=== PATIENT | female | born 1955 | race Caucasian/White ===

== ENCOUNTER 2019-03-03 08:30 | Outpatient (CLI) | payer BC, SELFPAY ==
[2019-03-03 08:58] VITALS: BP 153/74; PULSE 65; RESP 18; TEMP 36.6; O2SAT 99
== END 2019-03-03 09:26 | disposition home or self-care (01) ==
LOC: INF 08:35
PROVIDERS: PCP Family Medicine; Visit Provider Family Medicine
DX: M81.0 Age-related osteoporosis without current pathological fracture (principal)
CPT/HCPCS: 96372; J0897

== ENCOUNTER 2019-09-01 08:32 | Outpatient (CLI) | payer BC, SELFPAY ==
[2019-09-01 08:45] VITALS: BP 125/65; PULSE 64; RESP 18; TEMP 36.6; O2SAT 99
== END 2019-09-01 08:45 | disposition home or self-care (01) ==
LOC: INF 08:32
PROVIDERS: Visit Provider Family Medicine
DX: M81.0 Age-related osteoporosis without current pathological fracture (principal)
CPT/HCPCS: 96372; J0897

== ENCOUNTER 2020-03-22 09:21 | Outpatient (CLI) | payer BC, SELFPAY ==
[2020-03-22 09:50] VITALS: BP 144/70; PULSE 64; RESP 18; TEMP 36.7; O2SAT 100
== END 2020-03-22 09:50 | disposition home or self-care (01) ==
LOC: INF 09:24
PROVIDERS: PCP Family Medicine; Visit Provider Family Medicine
DX: M81.0 Age-related osteoporosis without current pathological fracture (principal)
CPT/HCPCS: 96372; J0897

== ENCOUNTER 2020-09-27 08:55 | Outpatient (CLI) | payer BC, SELFPAY ==
[2020-09-27 09:15] VITALS: BP 147/69; PULSE 78; RESP 18; TEMP 36.7; O2SAT 97
== END 2020-09-27 09:30 | disposition home or self-care (01) ==
LOC: INF 08:55
PROVIDERS: Visit Provider Family Medicine
DX: M81.0 Age-related osteoporosis without current pathological fracture (principal)
CPT/HCPCS: 96372; J0897

== ENCOUNTER 2021-05-05 09:44 | Outpatient (CLI) | payer MEDICARE, OTHER, SELFPAY ==
[2021-05-05 10:10] VITALS: BP 147/61; PULSE 59; RESP 18; O2SAT 99
== END 2021-05-05 10:10 | disposition home or self-care (01) ==
LOC: INF 09:48
PROVIDERS: PCP Emergency Medicine; Visit Provider Emergency Medicine
DX: M81.0 Age-related osteoporosis without current pathological fracture (principal)
CPT/HCPCS: 96372; J0897

== ENCOUNTER → 2021-11-07 09:01 | Outpatient (CLI) | payer MEDICARE, OTHER, SELFPAY ==
[2021-11-07 09:12] VITALS: O2SAT 98
== END ==
PROVIDERS: PCP Internal Medicine Adolescent Medicine; Visit Provider Emergency Medicine
DX: M81.0 Age-related osteoporosis without current pathological fracture (principal)
CPT/HCPCS: 96372; J0897

== ENCOUNTER 2022-05-08 08:33 | Outpatient (CLI) | payer MEDICARE, OTHER, SELFPAY ==
[2022-05-08 08:54] VITALS: BP 128/64; PULSE 69; RESP 18; TEMP 36.4; O2SAT 98
== END 2022-05-08 08:54 | disposition home or self-care (01) ==
LOC: INF 08:35
PROVIDERS: PCP Internal Medicine Adolescent Medicine; Visit Provider Internal Medicine Adolescent Medicine
DX: M81.0 Age-related osteoporosis without current pathological fracture (principal)
CPT/HCPCS: 96372; J0897

== ENCOUNTER 2022-11-14 08:28 | Outpatient (CLI) | payer MEDICARE, OTHER, SELFPAY ==
[2022-11-14 08:47] VITALS: BP 131/64; PULSE 67; RESP 18; O2SAT 99
== END 2022-11-14 08:47 | disposition home or self-care (01) ==
LOC: INF 08:29
PROVIDERS: PCP Internal Medicine Adolescent Medicine; Visit Provider Internal Medicine Adolescent Medicine
DX: M81.0 Age-related osteoporosis without current pathological fracture (principal)
CPT/HCPCS: 96372; J0897

== ENCOUNTER 2023-05-22 08:24 | Outpatient (CLI) | payer MEDICARE, OTHER, SELFPAY ==
[2023-05-22 08:41] VITALS: BP 140/57; PULSE 59; RESP 16; TEMP 36.5; O2SAT 99
[2023-05-22] MEDS: DENOSUMAB 60 MG/ML SYRINGE SQ (08:41)
== END 2023-05-22 08:55 | disposition home or self-care (01) ==
LOC: INF 08:26
PROVIDERS: PCP Internal Medicine Adolescent Medicine; Visit Provider Internal Medicine Adolescent Medicine
DX: M81.0 Age-related osteoporosis without current pathological fracture (principal)
CPT/HCPCS: 96372; J0897

== ENCOUNTER 2023-11-22 08:15 | Outpatient (CLI) | payer MEDICARE, OTHER, SELFPAY ==
[2023-11-22 08:29] VITALS: BP 118/63; PULSE 55; RESP 18; TEMP 36.6; O2SAT 99
[2023-11-22] MEDS: DENOSUMAB 60 MG/ML SYRINGE SQ (08:29)
== END 2023-11-22 08:49 | disposition home or self-care (01) ==
LOC: INF 08:17
PROVIDERS: PCP Internal Medicine Adolescent Medicine; Visit Provider Internal Medicine Adolescent Medicine
DX: M81.0 Age-related osteoporosis without current pathological fracture (principal)
CPT/HCPCS: 96372; J0897

== ENCOUNTER 2024-05-23 08:13 | Outpatient (CLI) | payer MEDICARE, OTHER, SELFPAY ==
[2024-05-23 08:25] VITALS: BP 150/75; PULSE 60; RESP 20; TEMP 36.7; O2SAT 99
[2024-05-23] MEDS: DENOSUMAB 60 MG/ML SYRINGE SUBCUT (08:25)
== END 2024-05-23 08:47 | disposition home or self-care (01) ==
LOC: INF 08:18
PROVIDERS: PCP Internal Medicine Adolescent Medicine; Visit Provider Internal Medicine Adolescent Medicine
DX: M81.0 Age-related osteoporosis without current pathological fracture (principal)
CPT/HCPCS: 96372; J0897

== ENCOUNTER 2024-12-02 10:30 | Outpatient (CLI) | payer MEDICARE, OTHER, SELFPAY ==
--- OUTSIDE RECORDS SUMMARY | 2024-11-10 15:15 | XMS_ITS | Encounter Summary ---
Author Organization [facility] Address [address] [place] [address] Care Team Providers Care Synoptic Meteorologist Name Role Phone Shantanu Shin MD Primary Care Provider [phone] Reason for Visit * Reason Comments Atrial Fibrillation Pt states she is her e today for follow up atrial fib. No chest pain, SOA, palpitations or dizziness. She states she does have some flutters. Encounter Details Date Type Department Care Team (Late st Contact Info) Description 11/10/2024 3:15 PM EDT Office Visit [facility] CARDIOLOGY [address] [place] [address] Tammy Avila MD [address] [place] [address] RBBB (Primary Dx); Hypertension, essential; Paroxysmal atrial fibrillation Social History Tobacco Use Types Packs/Day Years Used Date Smoking Tobacco: Former Passive Smoke Exposure: Past Smokeless Tobacco: Never Tobacco Cessation:Counseling Given: Yes Comments:QUIT MORE THAN 20 YEARS AGO Alcohol Use Standard Drinks/Week Comments Yes 2 (1 standard drink = 0.6 oz pur e alcohol) Abuse Screen Answer Date Recorded Feels Unsafe at Home or Work/School no 05/16/2022 Feels Threatened by Someone no 04/20 Does Anyone Try to Keep You From Having Contact with Others or Doing Things Outside Your Home? no 05/16/2022 Physical Signs of Abuse Present no 05/16/2022 Comments No Sex and Gender Information Value Date Recorded Sex Assigned at Female 06/30/2024 10:18 PM EDT Legal Sex Female 10:07 AM EDT Gender Identity Not on file Sexual Orientation Straight 06/30/2024 10 :18 PM EDT documented as of this encounter Last Filed Vital Signs Vital Sign Reading Time Taken Comments Blood Pressure 140/70 11/10/2024 3:32 PM EDT Pulse 61 11/10/2024 3:20 PM EDT Temperature - - Respiratory Rate - - Oxygen Saturation 97% 11/10/2024 3:20 PM EDT Inhaled Oxygen Concentration - - Weight 77.1 kg (170 lb) 11/10/2024 3:20 PM EDT Height 167.6 cm (5' 6 ) 11/10/2024 3:20 PM EDT Body Mass Index 27.44 11/10/2024 3:20 PM EDT documented in this encounter Progress Notes * Tammy Avila MD - 11/10/2024 3:15 PM EDTAssociated Order(s): ECG 12 Lead Post-Procedure Diagnose(s): RBBB Images from the original note were not included. [facility] Provider Note Date: 11/10/2024 Name: Aranza Man : 1955 PCP: Shantanu Shin MD Chief Complaint Patient presents with Atrial Fibrillation Pt states she is here today for follow up atrial fib. No chest pain, SOA, palpitations or dizziness. She states she does have some flutters. Subjective History of Present Illness Aranza Man is a 69 y.o. female with SVT who presents today for follow up. Pt reports that has had palpitations (flutter) and reports that she can cough and clear that. Has not had to use Flecainide since last visit. Denies shortness of breath. Has had no swelling. Feels like energy has improved. Still getting some headaches but better. No lightheadedness,syncope or falls B/P has been doing well. Monitored B/P for about a week and it was all normal so has not had to have any Clonidine either States that has started walking now that foot feels better. Has no new issues or concerns. EKG updated today. 11/10/2024 Updated with no new issues or concerns. Cardiology/sleep history 1. SVT, paroxysmal 2. Hypertension 3. Hypercholesterolemia 4. PAF - documented on strips on iphone 06/30/24 No Known Allergies Current Outpatient Medications: ALPRAZolam (XANAX) 0.25 MG tablet, Take 1 tablet by mouth At Night As Needed., Disp: , Rfl: cholecalciferol (VITAMIN D3) 1000 units tablet, Take 1 tablet by mouth 1 (One) Time Per Week. (Patient taking differently: Take 1 tablet by mouth Daily.), Disp: , Rfl: cloNIDine (CATAPRES) 0.1 MG tablet, Take 1 tablet by mouth 2 (Two) Times a Day As Needed for High Blood Pressure (systolic over 180)., Disp: 180 tablet, Rfl: 0 denosumab (Prolia) 60 MG/ML solution prefilled syringe syringe, Inject 0.0167 mL under the skin into the appropriate area as directed 1 (One) Time. Every 6 months, Disp: , Rfl: EQ FIBER SUPPLEMENT PO, Take by mouth., Disp: , Rfl: famotidine (PEPCID) 20 MG tablet, Take 1 tablet by mouth Daily., Disp: , Rfl: flecainide (TAMBOCOR) 150 MG tablet, Take 1 tablet by mouth As Needed (palpitations). Take two pills as needed for prolonged palpitation episode., Disp: 10 tablet, Rfl: 11 hydrocortisone 2.5 % ointment, As Needed., Disp: , Rfl: levothyroxine (SYNTHROID, LEVOTHROID) 75 MCG tablet, , Disp: , Rfl: metoprolol succinate XL (TOPROL-XL) 25 MG 24 hr tablet, Take 1 tablet by mouth twice daily, Disp: 180 tablet, Rfl: 0 Multiple Vitamins-Minerals (MULTIVITAL PO), Take by mouth., Disp: , Rfl: nystatin (MYCOSTATIN) 274380 UNIT/GM ointment, APPLY TOPICALLY TO AFFECTED AREAS ONCE A DAY, Disp: , Rfl: Gillette-3 Fatty Acids (FISH OIL) 1200 MG capsule delayed-release, Take by mouth., Disp: , Rfl: pravastatin (PRAVACHOL) 40 MG tablet, Take 1 tablet by mouth Daily., Disp: , Rfl: Probiotic Product (Groupalia PO), Take by mouth., Disp: , Rfl: rivaroxaban (XARELTO) 20 MG tablet, Take 1 tablet by mouth Daily., Disp: 21 tablet, Rfl: 0 Past Medical History: Diagnosis Date Atrial fibrillation Disease of thyroid gland Diverticulosis Hyperlipidemia Hypothyroidism Osteopenia Vitamin D deficiency Past Surgical History: Procedure Laterality Date CARDIAC CATHETERIZATION N/A 05/16/2018 Procedure: Left Heart Cath; Surgeon: Ramirez De Souza MD; Location: [facility] CATH INVASIVE LOCATION; Service: Cardiovascular HIATAL HERNIA REPAIR 2011 LAPAROSCOPIC TUBAL LIGATION 1984 OTHER SURGICAL HISTORY 1986 ORAL MAXILLOFACIAL THYROIDECTOMY 2014 Family History Problem Relation Age of Onset Pneumonia Mother Lung cancer Father Pancreatic cancer Brother Social History Socioeconomic History Marital status: Number of children: 2 Tobacco Use Smoking status: Former Passive exposure: Past Smokeless tobacco: Never Tobacco comments: QUIT MORE THAN 20 YEARS AGO Vaping Use Vaping status: Never Used Substance and Sexual Activity Alcohol use: Yes Alcohol/week: 2.0 - 3.0 standard drinks of alcohol Types: 2 - 3 Glasses of wine per week Drug use: No Sexual activity: Defer Objective Vital Signs: BP 140/70 (BP Location: Right arm, Patient Position: Sitting, Cuff Size: Adult) Pulse 61 Ht 167.6 cm (66 ) Wt 77.1 kg (170 lb) SpO2 97% BMI 27.44 kg/m?? Estimated body mass index is 27.44 kg/m?? as calculated from the following: Height as of this encounter: 167.6 cm (66 ). Weight as of this encounter: 77.1 kg (170 lb). Physical Exam Constitutional: Appearance: Normal appearance. She is well-developed. HENT: Head: Normocephalic and atraumatic. Eyes: General: No scleral icterus. Pupils: Pupils are equal, round, and reactive to light. Cardiovascular: Rate and Rhythm: Normal rate and regular rhythm. Heart sounds: Normal heart sounds. No murmur heard. Pulmonary: Breath sounds: Normal breath sounds. No wheezing or rhonchi. Musculoskeletal: Right lower leg: No edema. Left lower leg: No edema. Skin: Capillary Refill: Capillary refill takes less than 2 seconds. Coloration: Skin is not cyanotic. Nails: There is no clubbing. Neurological: Mental Status: She is alert and oriented to person, place, and time. Motor: No weakness. Gait: Gait normal. Psychiatric: Mood and Affect: Mood normal. Behavior: Behavior is cooperative. Thought Content: Thought content normal. ECG 12 Lead Date/Time: 11/10/2024 4:09 PM Performed by: Tammy Avila MD Authorized by: Tammy Avila MD Comparison: compared with previous ECG from 07/07/2024 Comparison to previous ECG: Incomplete RBBB Rhythm: sinus rhythm Rate: normal Conduction: right bundle branch block ST Segments: ST segments normal T Waves: T waves normal QRS axis: normal Other: no other findings Clinical impression: abnormal EKG Assessment and Plan ASSESSMENTS AND ORDERS Diagnoses and all orders for this visit: 1. RBBB (Primary) 2. Hypertension, essential 3. Paroxysmal atrial fibrillation Other orders - ECG 12 Lead Other orders ECG 12 Lead PLAN -no clear reason for change from incomplete RBBB to full RBBB, no new symptoms, not using flecainide. -will recheck EKG at next OV again -No bleeding issues with Xarelto. Just having some fatigue. -BP today is not reflective of home measurements - Blood pressure has been good at home, and has not needed clonidine. Follow Up Return in about 6 months (around 05/10/2025) for Next scheduled follow up. Humphrey Avila MD Cardiology and Sleep [facility] 11/10/2024 Please note that this explicitly excludes time spent on other separate billable services such as performing procedures or test interpretation, when applicable. This note was created using dictation software which occasionally transcribes nonsensical phrases. Please contact the provider if any clarification is needed. documented in this encounter Plan of Treatment Upcoming Encounters Date Type Department Care Team (Late st Contact Info) Description 05/18/2025 10:45 AM EDT Office Visit [facility] C[facility] [address] [place] [id number] Tammy Avila MD [address] [place], [place] [address] documented as of this encounter Procedures Procedure Name Priority Date/Time Associated Diagnosis Comments ECG 12-LEAD Routine 11/10/2024 4:09 PM EDT RBBB documented in this encounter Results * (ABNORMAL) ECG 12-LEAD (11/10/2024 4:09 PM EDT) Narrative Radha Lockhart RegSched Rep - 11/10/2024 4:09 PM EDT Tammy Avila MD 11/10/2024 4:23 PM ECG 12 Lead Date/Time: 11/10/2024 4:09 PM Performed by: Tammy Avila MD Authorized by: Tammy Avila MD Comparison: compared with previous ECG from 07/07/2024 Comparison to previous ECG: Incomplete RBBB Rhythm: sinus rhythm Rate: normal Conduction: right bundle branch block ST Segments: ST segments normal T Waves: T waves normal QRS axis: normal Other: no other findings Clinical impression: abnormal EKG Procedure Note Tammy Avila MD - 11/10/2024 3:15 PM EDT Images from the original note were not included. Cardiovascular and Sleep Consulting Provider Note Date: 11/10/2024 Name: Aranza Man : 1955 PCP: Shantanu Shin MD Chief Complaint Patient presents with Atrial Fibrillation Pt states she is here today for follow up atrial fib. No chest pain,SOA, palpitations or dizziness. She states she does have some flutters. Subjective History of Present Illness Aranza Man is a 69 y.o. female with SVT who presents today forfollow up. Pt reports that has had palpitations (flutter) and reports that she cancough and clear that. Has not had to use Flecainide since last visit. Denies shortness of breath. Has had no swelling. Feels like energy has improved. Still getting some headaches but better. No lightheadedness,syncope or falls B/P has been doing well. Monitored B/P for about a week and it was allnormal so has not had to have any Clonidine either States that has started walking now that foot feels better. Has no new issues or concerns. EKG updated today. 11/10/2024 Updated with no new issues or concerns. Cardiology/sleep history 1. SVT, paroxysmal 2. Hypertension 3. Hypercholesterolemia 4. PAF - documented on strips on iphone 06/30/24 No Known Allergies Current Outpatient Medications: ALPRAZolam (XANAX) 0.25 MG tablet, Take 1 tablet by mouth At Night AsNeeded., Disp: , Rfl: cholecalciferol (VITAMIN D3) 1000 units tablet, Take 1 tablet by mouth 1(One) Time Per Week. (Patient taking differently: Take 1 tablet by mouthDaily.), Disp: , Rfl: cloNIDine (CATAPRES) 0.1 MG tablet, Take 1 tablet by mouth 2 (Two) Timesa Day As Needed for High Blood Pressure (systolic over 180)., Disp: 180tablet, Rfl: 0 denosumab (Prolia) 60 MG/ML solution prefilled syringe syringe, Inject0.0167 mL under the skin into the appropriate area as directed 1 (One)Time. Every 6 months, Disp: , Rfl: EQ FIBER SUPPLEMENT PO, Take by mouth., Disp: , Rfl: famotidine (PEPCID) 20 MG tablet, Take 1 tablet by mouth Daily., Disp: ,Rfl: flecainide (TAMBOCOR) 150 MG tablet, Take 1 tablet by mouth As Needed(palpitations). Take two pills as needed for prolonged palpitationepisode., Disp: 10 tablet, Rfl: 11 hydrocortisone 2.5 % ointment, As Needed., Disp: , Rfl: levothyroxine (SYNTHROID, LEVOTHROID) 75 MCG tablet, , Disp: , Rfl: metoprolol succinate XL (TOPROL-XL) 25 MG 24 hr tablet, Take 1 tablet bymouth twice daily, Disp: 180 tablet, Rfl: 0 Multiple Vitamins-Minerals (MULTIVITAL PO), Take by mouth., Disp: ,Rfl: nystatin (MYCOSTATIN) [id number] UNIT/GM ointment, APPLY TOPICALLY TOAFFECTED AREAS ONCE A DAY, Disp: , Rfl: Gillette-3 Fatty Acids (FISH OIL) 1200 MG capsule delayed-release, Take bymouth., Disp: , Rfl: pravastatin (PRAVACHOL) 40 MG tablet, Take 1 tablet by mouth Daily.,Disp: , Rfl: Probiotic Product (Groupalia PO), Take by mouth., Disp: ,Rfl: rivaroxaban (XARELTO) 20 MG tablet, Take 1 tablet by mouth Daily., Disp:21 tablet, Rfl: 0 Past Medical History: Diagnosis Date Atrial fibrillation Disease of thyroid gland Diverticulosis Hyperlipidemia Hypothyroidism Osteopenia Vitamin D deficiency Past Surgical History: Procedure Laterality Date CARDIAC CATHETERIZATION N/A 05/16/2018 Procedure: Left Heart Cath; Surgeon: Ramirez De Souza MD; Location: [facility] CATH INVASIVE LOCATION; Service: Cardiovascular HIATAL HERNIA REPAIR 2011 LAPAROSCOPIC TUBAL LIGATION 1984 OTHER SURGICAL HISTORY 1986 ORAL MAXILLOFACIAL THYROIDECTOMY 2013 Family History Problem Relation Age of Onset Pneumonia Mother Lung cancer Father Pancreatic cancer Brother Social History Socioeconomic History Marital status: Number of children: 2 Tobacco Use Smoking status: Former Passive exposure: Past Smokeless tobacco: Never Tobacco comments: QUIT MORE THAN 20 YEARS AGO Vaping Use Vaping status: Never Used Substance and Sexual Activity Alcohol use: Yes Alcohol/week: 2.0 - 3.0 standard drinks of alcohol Types: 2 - 3 Glasses of wine per week Drug use: No Sexual activity: Defer Objective Vital Signs: BP 140/70 (BP Location: Right arm, Patient Position: Sitting, Cuff Size:Adult) Pulse 61 Ht 167.6 cm (66 ) Wt 77.1 kg (170 lb) SpO2 97% BMI 27.44 kg/m Estimated body mass index is 27.44 kg/m as calculated from thefollowing: Height as of this encounter: 167.6 cm (66 ). Weight as of this encounter: 77.1 kg (170 lb). Physical Exam Constitutional: Appearance: Normal appearance. She is well-developed. HENT: Head: Normocephalic and atraumatic. Eyes: General: No scleral icterus. Pupils: Pupils are equal, round, and reactive to light. Cardiovascular: Rate and Rhythm: Normal rate and regular rhythm. Heart sounds: Normal heart sounds. No murmur heard. Pulmonary: Breath sounds: Normal breath sounds. No wheezing or rhonchi. Musculoskeletal: Right lower leg: No edema. Left lower leg: No edema. Skin: Capillary Refill: Capillary refill takes less than 2 seconds. Coloration: Skin is not cyanotic. Nails: There is no clubbing. Neurological: Mental Status: She is alert and oriented to person, place, and time. Motor: No weakness. Gait: Gait normal. Psychiatric: Mood and Affect: Mood normal. Behavior: Behavior is cooperative. Thought Content: Thought content normal. ECG 12 Lead Date/Time: 11/10/2024 4:09 PM Performed by: Tammy Avila MD Authorized by: Tammy Avila MD Comparison: compared with previousECG from 07/07/2024 Comparison to previous ECG: Incomplete RBBB Rhythm: sinus rhythm Rate: normal Conduction: right bundle branch block ST Segments: ST segments normal T Waves: T waves normal QRS axis: normal Other: no other findings Clinical impression: abnormal EKG Assessment and Plan ASSESSMENTS AND ORDERS Diagnoses and all orders for this visit: 1. RBBB (Primary) 2. Hypertension, essential 3. Paroxysmal atrial fibrillation Other orders - ECG 12 Lead Other orders ECG 12 Lead PLAN -no clear reason for change from incomplete RBBB to full RBBB, no newsymptoms, not using flecainide. -will recheck EKG at next OV again -No bleeding issues with Xarelto. Just having some fatigue. -BP today is not reflective of home measurements - Blood pressure has been good at home, and has not needed clonidine. Follow Up Return in about 6 months (around 05/10/2025) for Next scheduled followup. Humphrey Avila MD Cardiology and Sleep [facility] 11/10/2024 Please note that this explicitly excludes time spent on other separatebillable services such as performing procedures or test interpretation,when applicable. This note was created using dictation software which occasionallytranscribes nonsensical phrases. Please contact the provider if anyclarification is needed. Tammy Avila MD ECG ORDERABLES Final Result documented in this encounter Visit Diagnoses Diagnosis RBBB- Primary Hypertension, essential Unspecified essential hypertension Paroxysmal atrial fibrillation Atrial fibrillation documented in this encounter Care Teams Synoptic Meteorologist Relationship Specialty Start Date End Date Shantanu Shin MD [address] [facility] [address] [place] [address] PCP - General Adolescent Medicine 07/05/22 documented as of this encounter
--- OUTSIDE RECORDS SUMMARY | 2024-12-02 10:34 | XMS_ITS | Encounter Summary ---
Author Organization [employer] ([place], [place], [place], [place]) Address [address] [place] [address] Care Team Providers Care Uc Architect Name Role Phone Unavailable Primary Care Provider Unavailabl e Encounter Details Date Type Department Care Team (Late st Contact Info) Description 11/20/[address] [facility] [place] [facility] [address] [place] [address] ProviderShireen MD [address] [place] [address] Social History Tobacco Use Types Packs/Day Years Used Date Smoking Tobacco: Never Assessed Comments Unknown Sex and Gender Information Value Date Recorded Sex Assigned at Not on file Legal Sex Female 3:47 PM CDT Gender Identity Not on file Sexual Orientation Not on file documented as of this encounter Miscellaneous Notes * Cerner Conversion Note - Shireen ProviderMD - 11/20/2018 10:34 AM CDT [facility] Main OR IntraOp Summary Primary Physician: HANNAH PENA MD Finalized Date/Time: 11/20/18 10:57:18 Pt. Name: ARANZA MAN/Sex: 1955 Female Med Rec #: [id number] Physician: HANNAH PENA MD Financial #: [id number] Pt. Type: O Room/Bed: Admit/Disch: 11/20/18 07:31:00 - [place] [facility] [place] Attendance Entry 1 Entry 2 Entry 3 Case Attendee HANNAH PENA MD RENFROE, REBECCA, Ruth Baeza RN Role Performed Surgeon/Proceduralist, COOKING CHEF/Nurse Seconds Grader Contact Lens Edge Buffer, First First Time In 11/20/18 10:20:00 11/20/18 10:20:00 11/20/18 10:20:00 Time Out 11/20/18 10:57:00 11/20/18 10:57:00 11/20/18 10:57:00 Procedure Vitrectomy Pars Plana Vitrectomy Pars Plana Vitrectomy Pars Plana 25 Gauge 25 Gauge 25 Gauge Other Attendee Superficial Wound Closed By: Last Modified By: Ruth White RN Cutwright, Shawsta, RN Cutwright, Shawsta, RN 11/20/18 10:57:17 11/20/18 10:57:17 11/20/18 10:57:17 Entry 4 Entry 5 Case Attendee HUGO PELAEZ ST OTHER, ATTENDEE #1 Role Performed Scrub, First Fellow Time In 11/20/18 10:20:00 11/20/18 10:20:00 Time Out 11/20/18 10:57:00 11/20/18 10:57:00 Procedure Vitrectomy Pars Plana Vitrectomy Pars Plana 25 Gauge 25 Gauge Other Attendee LISA BRADY Superficial Wound Closed By: Last Modified By: Ruth White RN Cutwright, Shawsta, RN 11/20/18 10:57:17 11/20/18 10:57:17 [facility] IntraOp Case Attendance Audit 11/20/18 10:57:17 Montessori Preschool Teacher: [email or web address] Modifier: [email or web address] 1 <+> Time Out 1 <*> Procedure Vitrectomy Pars Plana 25 Gauge 2 <+> Time Out 2 <*> Procedure Vitrectomy Pars Plana 25 Gauge 3 <+> Time Out 3 <*> Procedure Vitrectomy Pars Plana 25 Gauge 4 <+> Time Out 4 <*> Procedure Vitrectomy Pars Plana 25 Gauge 5 <+> Time Out 5 <*> Procedure Vitrectomy Pars Plana 25 Gauge 11/20/18 10:39:33 Montessori Preschool Teacher: [email or web address] Modifier: [email or web address] <+> 1 Procedure 2 <*> Procedure Vitrectomy Pars Plana 25 Gauge 3 <*> Procedure Vitrectomy Pars Plana 25 Gauge 4 <*> Procedure Vitrectomy Pars Plana 25 Gauge 5 <*> Procedure Vitrectomy Pars Plana 25 Gauge 11/20/18 10:39:13 Montessori Preschool Teacher: [email or web address] Modifier: [email or web address] <+> 1 Time In 2 <+> Time In 2 <*> Procedure Vitrectomy Pars Plana 25 Gauge 3 <+> Time In 3 <*> Procedure Vitrectomy Pars Plana 25 Gauge 4 <+> Time In 4 <*> Procedure Vitrectomy Pars Plana 25 Gauge <+> 5 Case Attendee <+> 5 Role Performed <+> 5 Time In <+> 5 Procedure <+> 5 Other Attendee [facility] IntraOp Case Times Entry 1 Patient In Room Time 11/20/18 10:20:00 Out Room Time 11/20/18 10:57:00 Anesthesia Start Time 11/20/18 10:20:00 Stop Time 11/20/18 10:57:00 Anesthesia Ready 11/20/18 10:20:00 Surgery / Procedure Times Start Time 11/20/18 10:34:00 Stop Time 11/20/18 10:49:00 Last Modified By: Ruth White RN 11/20/18 10:57:15 [facility] IntraOp Case Times Audit 11/20/18 10:57:15 [employer]ori Preschool Teacher: [email or web address] Modifier: [email or web address] <+> 1 Out Room Time <+> 1 Stop Time 11/20/18 10:52:32 Montessori Preschool Teacher: [email or web address] Modifier: [email or web address] <+> 1 Stop Time [facility] IntraOp Communication Entry 1 Communication To Other Comment COMMUNICATION BOARD Last Modified By: Ruth White RN 11/20/18 10:37:41 [facility] IntraOp Counts Verification Entry 1 Procedure Vitrectomy Pars Plana 25 Gauge Count Info Count Type Sponge, Sharps Counts Verification Baseline/pre-procedure Sequence Count Results Correct, surgeon notified Counts Performed By Count Performed By HUGO PELAEZ ST (Scrub) Count Performed By Ruth White RN (RN) Last Modified By: Ruth White RN 11/20/18 10:37:58 [facility] IntraOp Counts Final Entry 1 Procedure Vitrectomy Pars Plana 25 Gauge Final Count Info Count Type Sharps Counts Verification Skin Closure/end of Sequence procedure Counts Performed By Count Performed By HUGO PELAEZ ST (Scrub) Count Performed By Ruth White RN (RN) Last Modified By: Ruth White RN 11/20/18 10:48:43 [facility] IntraOp Departure from OR Entry 1 Integumentary Assessment Integumentary WDL Assessment WDL Transfer/Handoff Transfer to Ambulatory unit, Phase II Handoff Method Bedside/Face to face Post-op Transport Stretcher/Gurney Via Patient Transport HERBERT PARDO, COOKING CHEF, Accompanied by Ruth White RN Last Modified By: Ruth White RN 11/20/18 10:39:22 [facility] IntraOp Dressing and Packing Entry 1 Type Dressing Location OPERATIVE EYE Wound Dressing Item Eye Pad, Eye Shield Tape Type Other Applied By HANNAH PENA MD Other Comments TRANSPORE TAPE Last Modified By: Ruth White RN 11/20/18 10:39:24 [facility] IntraOp Fire Risk Assessment Entry 1 Fire Info Surgical Site or 1- Yes Incision Above the Xyphoid Open O2 Source 1- Yes (Mask or Cannula) Available Ignition 1- Yes (ESU, Laser, Light Source) Fire Risk 3 Assessment Score Fire Score Fire Risk Yes Assessment Complete Fire Risk Ruth White RN Assessment Verified By Fire Risk 11/20/18 10:33:00 Assessment Verified Date/Time Fire Risk High Risk Protocol Yes Implemented Standard Fire Yes Safety Precautions Followed Last Modified By: Ruth White RN 11/20/18 10:39:31 [facility] IntraOp General Case Curling Machine Operator 1 Case Information OR OR 08 [facility] Case Level 1 Room Verified Yes Wound Class I - Clean Specialty SN Ophthalmology Anesthesia Type MAC ASA Class 2 Diagnosis Preop Diagnosis VITREOUS OPACITIES RIGHT EYE Postop Same As Preop Yes Postop Diagnosis VITREOUS OPACITIES RIGHT EYE Last Modified By: Ruth White RN 11/20/18 10:42:20 [facility] IntraOp General Case Data Audit 11/20/18 10:42:20 Montessori Preschool Teacher: [email or web address] Modifier: [email or web address] <+> 1 Postop Diagnosis [facility] IntraOp Intraoperative Assessment Entry 1 Handoff Method Other Valid History / Yes Physical in Chart Preoperative Yes Checklist Reviewed/Evaluated Allergies Reviewed Yes Patient is Latex No Sensitive Isolation Not applicable Precautions Noted Level of WDL Consciousness (WDL = Alert, Oriented to Person, Place, and Time) Skin Assessment Yes Verified Present Upon IVs Arrival to OR Last Modified By: Ruth White RN 11/20/18 10:42:27 [facility] IntraOp Intraoperative Assessment Audit 11/20/18 10:42:27 Montessori Preschool Teacher: [email or web address] Modifier: CUTWRISK <+> 1 Patient is Latex Sensitive [facility] IntraOp Medication Admin Entry 1 Entry 2 Entry 3 Medication/Irrigant Lidocaine 4% 5 ml Ancef 1Gm powder - Marcaine 0.75% injectable - [id number] 7.5mg/1ml 10ml injection - [id number] Combo Med List 1 - Combo Med 1 - Combo Med Time Administered Route of LOCAL SUBCONJ LOCAL Administration Dose Dose 4.5 5 4.5 Unit of Measure ml ml ml Volume QS QS QS Administered By OTHER, ATTENDEE #1 OTHER, ATTENDEE #1 OTHER, ATTENDEE #1 Procedure Irrigation Irrigant Volume In Irrigant Volume Out Last Modified By: Ruth White RN Cutwright, Shawsta, RN Cutwright, Shawsta, RN 11/20/18 10:41:57 11/20/18 10:41:57 11/20/18 10:41:57 Entry 4 Entry 5 Entry 6 Medication/Irrigant BSS 15ml - [id number] BSS Plain 500ml - Hylenex 150units/ml [id number] Combo Med List 1 - Combo Med Time Administered Route of TOPICAL INTRAOCCULAR LOCAL Administration Dose Dose 15 500 1 Unit of Measure ml ml ml Volume QS QS QS Administered By HUGO PELAEZ ST OTHER, ATTENDEE #1 OTHER, ATTENDEE #1 Procedure Irrigation Irrigant Volume In Irrigant Volume Out Last Modified By: Ruth White RN Cutwright, Shawsta, RN Cutwright, Shawsta, RN 11/20/18 10:41:57 11/20/18 10:41:57 11/20/18 10:41:57 Entry 7 Entry 8 Entry 9 Medication/Irrigant [facility]AN [facility] INJ Decadron 10mg 1ml - Erythromycin 3.5Gm 1ML SYR --[id number] ophthalmic ointment - [id number] Combo Med List Time Administered Route of TOPICAL SUBCONJ TOPICAL Administration Dose Dose 1 Unit of Measure ml Volume QS QS QS Administered By OTHER, ATTENDEE #1 OTHER, ATTENDEE #1 OTHER, ATTENDEE #1 Procedure Irrigation Irrigant Volume In Irrigant Volume Out Last Modified By: Ruth White RN Cutwright, Shawsta, RN Cutwright, Shawsta, RN 11/20/18 10:41:57 11/20/18 10:41:57 11/20/18 10:41:57 [facility] IntraOp Patient Positioning Entry 1 Procedure Vitrectomy Pars Plana 25 Gauge Body Position Supine Left Arm Position Tucked and padded at side Right Arm Position Tucked and padded at side Left Leg Position Uncrossed, parallel Right Leg Position Uncrossed, parallel Position Comments PT REMAINED ON EYE STRETCHER IN BILATERAL WRIST RESTRAINTS WITH PILLOW UNDER KNES. Feet Uncrossed Yes Pressure Points Yes Checked Positioning Devices Pillows, Soft Cuff Straps Device Position HEAD ON PADDED HEADREST. ARMS ADDUCTED TO SIDES. PILLOW UNDER KNEES. Positioned By EDVIN, HERBERT, COOKING CHEF, Ruth White RN Position Verified Positioning Yes Verified by Anesthesia Positioning Yes Verified by Surgeon Last Modified By: Ruth White RN 11/20/18 10:42:40 [facility] IntraOp Sign In Entry 1 Patient, Site, Yes Procedure Identified Surgical Consent Yes Confirmed Relevant Surgical Yes Documents Available Surgical Site Yes Marked by person performing procedure Anesthesia Machine Yes Check Completed Medication Checks Yes Completed Allergies No Airway Difficult No Airway/Aspiration Risk Difficult Yes Airway/Aspiration Intervention Equipment Available Blood Loss Risk No Blood Loss Yes Intervention Equipment Prepared and Ready Blood Identifiers Not applicable Verified Per Policy Hypothermia Risk No Warming Measures Yes Taken Last Modified By: Ruth White RN 11/20/18 10:42:47 [facility] Intra Op Sign Out Entry 1 RN Confirmation Surgical Yes Procedure(s) Identified Instrument, Sponge Yes and Sharps Counts Correct/Documented Equipment Problems N/A Documented Specimen Labeled N/A Correctly Urinary Catheter N/A Documented in IView Davila Patient Yes Recovery Concerns Reviewed with Anesthesia Provider, Surgeon and RN Davila Patient Yes Management Concerns Reviewed with Anesthesia Provider, Surgeon and RN Safety Checklist Yes Elements Complete? RN Sign Out Ruth White RN Signature RN Sign Out 11/20/18 10:49:00 Signature Date/Time Plan of Care Outcome - Fire Risk OUTCOME STATEMENT: Goal met Patient is free from injury related to surgical fire Plan of Care Outcome - Pt Positioning OUTCOME STATEMENT: Goal met Absence of signs and symptoms of positioning injury. Plan of Care Outcome - Skin Prep OUTCOME STATEMENT: Goal met Intraoperative care is consistent with measures to prevent infection Plan of Care Outcome - Xray/Images OUTCOME STATEMENT: N/A Absence of observable signs or symptoms of radiation injury Plan of Care Outcome - Counts OUTCOME STATEMENT: Goal met Absence of signs and symptoms of injury related to extraneous objects Last Modified By: Ruth White RN 11/20/18 10:49:19 [facility] Intra Op Sign Out Audit 11/20/18 10:49:19 Montessori Preschool Teacher: [email or web address] Modifier: [email or web address] <+> 1 RN Sign Out Signature Date/Time <+> 1 Urinary Catheter Documented in IView [facility] IntraOp Skin Prep Entry 1 Procedure Vitrectomy Pars Plana 25 Gauge Prescribed N/A Pre-Surgical Prep Completed Prep Area OPERATIVE EYE RIGHT Intraop Prep Integumentary WDL Assessment WDL Prep Agents Betadine solution Prep by Ruth White RN Skin Prep Comment 5% BETADINE Hair Removal Methods No hair removal performed Last Modified By: Ruth White RN 11/20/18 10:42:56 [facility] IntraOp Surgical Procedures Entry 1 Procedure Vitrectomy Pars Plana 25 Gauge Additional VITRECTOMY RIGHT EYE Procedure Description Primary Procedure Yes Primary Surgeon HANNAH PENA MD Start 11/20/18 10:34:00 Stop 11/20/18 10:49:00 Anesthesia Type MAC Specialty SN Ophthalmology Wound Class I - Clean Last Modified By: Ruth White RN 11/20/18 10:57:08 [facility] IntraOp Surgical Procedures Audit 11/20/18 10:57:08 Montessori Preschool Teacher: [email or web address] Modifier: [email or web address] 1 <*> Procedure Vitrectomy Pars Plana 25 Gauge 1 <+> Specialty 11/20/18 10:49:24 Montessori Preschool Teacher: [email or web address] Modifier: [email or web address] 1 <*> Procedure Vitrectomy Pars Plana 25 Gauge 1 <+> Stop [facility] IntraOp Time Out Entry 1 Procedure to be Vitrectomy Pars Plana Performed 25 Gauge Time Out Time Out Pause Time 11/20/18 10:33:00 All activity Yes suspended (unless life threatening emergency) Team Verbally Correct patient Confirms Information identity, Correct side and site are marked, Consent form is present and accurate, Agreement on the procedure to be done, Correct patient position, Confirm the skin prep has dried, Performed in location of procedure after prepped/draped Antibiotic N/A Prophylaxis Administered Or In Progress Within the Last 60 Minutes Beta Tamera N/A Administered Venous N/A Thromboembolism Prophylaxis Required Anticipated Critical Events Surgeon None expected Anesthesia Provider None expected Nursing Assures Sterility of instruments, Equipment concerns or issues, Implant Availability Essential Imaging N/A Labeled and Displayed Last Modified By: Ruth White RN 11/20/18 10:37:30 Case Comments <None> Finalized By: Ruth White RN Document Signatures Signed By: Ruth White RN 11/20/18 10:57 documented in this encounter Plan of Treatment Not on file documented as of this encounter Visit Diagnoses Not on filedocumented in this encounter
--- OUTSIDE RECORDS SUMMARY | 2024-12-02 10:34 | XMS_ITS | Clinical Summary ---
Author Organization [facility] Address [address] [place] [address] Care Team Providers Care Crop Consultant Name Role Phone Shantanu Shin MD Primary Care Provider [phone] Allergies No known active allergies Medications pravastatin (PRAVACHOL) 40 MG tablet Take 1 tablet by mouth Daily. Active Probiotic Product (Omniox PO) Take by mouth. Acti ve cholecalciferol (VITAMIN D3) 1000 units tablet Take 1 tablet by mouth 1 (One) Time Per Week. Active Multiple Vitamins-Mineral s (MULTIVITAL PO) Take by mouth. Activ e [place]-3 Fatty Acids (FISH OIL) 1200 MG capsule delayed-release Take by mouth. Active EQ FIBER SUPPLEMENT PO Take by mouth. A ctive metoprolol succinate XL (TOPROL-XL) 25 MG 24 hr tablet Take 1 tablet by mouth twice daily 180 tablet 3 Active ALPRAZolam (XANAX) 0.25 MG tablet Take 1 tablet by mouth At Night As Needed. 3 Active famotidine (PEPCID) 20 MG tablet Take 1 tablet by mouth Daily. 3 Active levothyroxine (SYNTHROID, LEVOTHROID) 75 MCG tablet 4 Active denosumab (Prolia) 60 MG/ML solution prefilled syringe syringe Inject 0.0167 mL under the skin into the appropriate area as directed 1 (One) Time. Every 6 months Active rivaroxaban (XARELTO) 20 MG tabletIndication s:Paroxysmal atrial fibrillation Take 1 tablet by mouth Daily. 21 tablet 5 Active flecainide (TAMBOCOR) 150 MG tabletIndication s:Sustained SVT Take 1 tablet by mouth As Needed (palpitations). Take two pills as needed for prolonged palpitation episode. 10 tablet 11 5 Active hydrocortisone 2.5 % ointment As Needed. Active nystatin (MYCOSTATIN) 459188 UNIT/GM ointment APPLY TOPICALLY TO AFFECTED AREAS ONCE A DAY 5 Active cloNIDine (CATAPRES) 0.1 MG tabletIndication s:Hypertension, essential Take 1 tablet by mouth 2 (Two) Times a Day As Needed for High Blood Pressure (systolic over 180). 180 tablet 5 Active Active Problems Problem Noted Date Diagnosed Date Sustained SVT 07/06/2022 Assessment & Plan (07/06/2022 9:27 AM EDT): We will use pill in the pocket strategy in case she is traveling and has a prolonged sustained episode. For now they seem to be breaking spontaneously. Discussed we may need more regular antiarrhythmics in the future ablation but this seems very controlled for now. Hypertension, essential 07/06/2022 Assessment & Plan (07/06/2022 9:27 AM EDT): Hypertension is improving with treatment. Continue current treatment regimen. Blood pressure will be reassessed at the next regular appointment. Abnormal stress test 05/13/2018 Overview (05/13/2018): Added automatically from request for surgery [id number] Encounters Date Type Department Care Team Description 11/10/2024 3:15 PM EDT Office Visit [facility] [address] [place] [phone] Tammy Avila MD RBBB (Primary Dx); Hypertension, essential; Paroxysmal atrial fibrillation 11/10/2024 Travel 09/10/2024 Refill [facility] [address] [phone] Tammy Avila MD Med Refill 09/03/2024 3:00 PM EDT Office Visit [facility] [address] [phone] Tammy Avila MD Paroxysmal atrial fibrillation (Primary Dx); Hypertension, essential 09/03/2024 Travel from Last 3 Months Immunizations Immunization Administration Dates Next Due Tdap 05/17/2022 Family History Medical History Relation Name Comments Pancreatic cancer Brother Lung cancer Father Pneumonia Mother Relation Name Status Comments Brother Father (Age 64) Mother (Age 73) Sister five Alive Social History Tobacco Use Types Packs/Day Years [...] Orientation Straight 06/30/2024 10 :18 PM EDT Last Filed Vital Signs Vital Sign Reading Time Taken Comments Blood Pressure 140/70 11/10/2024 3:32 PM EDT Pulse 61 11/10/2024 3:20 PM EDT Temperature 36.1 C (97 F) 05/16/2022 7:05 PM EDT Respiratory Rate 18 05/16/2022 7:05 PM EDT Oxygen Saturation 97% 11/10/2024 3:20 PM EDT Inhaled Oxygen Concentration - - Weight 77.1 kg (170 lb) 11/10/2024 3:20 PM EDT Height 167.6 cm (5' 6 ) 11/10/2024 3:20 PM EDT Body Mass Index 27.44 11/10/2024 3:20 PM EDT Plan of Treatment Upcoming Encounters Date Type Department Care Team (Late st Contact Info) Description 05/18/2025 10:45 AM EDT Office Visit [facility] [address] [phone] Tammy Avila MD [address] [place] [address] Health Maintenance Due Date Last Done Comments DXA SCAN 1955 MAMMOGRAM 1995 COLOGUARD 2000 COLON CANCER SCREENING 5 YEA R SIGMOIDOSCOPY 2000 COLONOSCOPY 2000 [address] CANCER SCREENING 2000 CT COLONOGRAPHY 2000 FECAL OCCULT BLOOD TEST 2000 FIT Testing (1 year) 2000 ANNUAL WELLNESS VISIT 05/14/2018 HEPATITIS C SCREENING 05/14/2018 LIPID PANEL 05/17/2019 05/16/2018 INFLUENZA VACCINE 09/19/2024 12/10/2023, , 11/26/2021, Additional history exists COVID-19 Vaccine (2024-03 6 season) 2024 02/05/2023, 12/14/2021, 06/23/2021, Additional history exists TDAP/TD VACCINES (2 - Td or Tdap) 05/17/2032 023 ZOSTER VACCINE Completed 09/18/2018, 05/21, 10/28/2016 Pneumococcal Vaccine 50+ Completed 06/20/2022, 06/20 Procedures Procedure Name Priority Date/Time Associated Diagnosis Comments ECG 12-LEAD Routine 11/10/2024 4:09 PM EDT RBBB LIPID PANEL STAT 05/16/2018 8:18 AM EDT from Last 3 Months or Most Recently Relevant to Health Maintenance Results * (ABNORMAL) ECG 12-LEAD (11/10/2024 4:09 [...] Take by mouth., Disp: ,Rfl: nystatin (MYCOSTATIN) 629932 UNIT/GM ointment, APPLY TOPICALLY TOAFFECTED AREAS ONCE A DAY, Disp: , Rfl: [place]-3 Fatty Acids (FISH OIL) 1200 MG capsule delayed-release, Take bymouth., Disp: , Rfl: pravastatin (PRAVACHOL) 40 MG tablet, Take 1 tablet by mouth Daily.,Disp: , Rfl: Probiotic Product (Omniox PO), Take by mouth., Disp: ,Rfl: rivaroxaban [...] scheduled followup. Humphrey Avila MD Cardiology and [facility] 11/10/2024 Please note that this explicitly excludes time spent on other separatebillable services such as performing procedures or test interpretation,when applicable. This note was created using dictation software which occasionallytranscribes nonsensical phrases. Please contact the provider if anyclarification is needed. us Tammy Avila MD ECG ORDERABLES Final Result * (ABNORMAL) Lipid Panel (05/16/2018 8:18 AM EDT) Total Cholesterol 186 0 - 200 mg/dL 05/16/2018 9:08 AM EDT [facility] Triglycerides 167(H) 0 - 150 mg/dL 05/16/2018 9:08 AM EDT [facility] HDL Cholesterol 66(H) 40 - 60 mg/dL 05/16/2018 9:08 AM EDT [facility] LDL Cholesterol 108 0 - 130 mg/dL 05/16/2018 9:08 AM T [facility] Blood Line / Unknown 05/16/2018 8: 18 AM EDT 05/16/2018 8:26 AM EDT [facility] - 05/16/2018 9:08 AM EDT Cholesterol Reference Ranges: Desirable < 200 mg/dL Borderline 200-239 mg/dL High Risk > 239 mg/dL Triglyceride Reference Ranges: Normal < 150 mg/dL Borderline 150-199 mg/dL High 200-499 mg/dL Very High > 499 mg/dL HDL Reference Ranges: Low < 40 mg/dL High > 59 mg/dL LDL Reference Ranges: Optimal < 100 mg/dL Near Optimal 100-129 mg/dL Borderline 130-159 mg/dL High 160-189 mg/dL Very High > 189 mg/dL us Ailyn Ewing APRN LAB BLOOD ORDERABLES Final Result [facility]
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
--- OUTSIDE RECORDS SUMMARY | 2024-12-02 10:34 | XMS_ITS | Encounter Summary ---
Author Organization [employer] ([place], [place], [place], [place]) Address [address] [place] [address] Care Team Providers Care Field Support Rep Name Role Phone Unavailable Primary Care Provider Unavailabl e Encounter Details Date Type Department Care Team (Late st Contact Info) Description 11/20/2018 Transcribed Document [facility] [place] [address] [place] [address] ProviderShireen MD [address] [place] [address] Social History Tobacco Use Types Packs/Day Years Used Date Smoking Tobacco: Never Assessed Comments Unknown Sex and Gender Information Value Date Recorded Sex Assigned at Not on file Legal Sex Female 3:47 PM CDT Gender Identity Not on file Sexual Orientation Not on file documented as of this encounter Miscellaneous Notes * Cerner Conversion Note - Shireen ProviderMD - 11/20/2018 11:13 AM CDT [facility] [address] [place] [address] ARANZA MAN :1955 Visit Time:11/20/2018 What to do next Your Diagnosis Other vitreous opacities, right eye, Other vitreous opacities, right eye Instructions From Your Care Team Leave patch in place until seen by MD; You may sit/lay in any position per MD Discharge Activity: Discharge Activity: Activity as tolerated Diet: Discharge Diet: Resume usual diet as tolerated Follow-Up Appointments Follow Up with HANNAH PENA MD When 12/02/2018 01:20 PM EDT Where: Follow Up with HANNAH PENA MD When 11/21/2018 11:00 AM EDT Where: [address] [place] [address]- Medications What How Much When Instructions Next Dose aspirin (aspirin 81 mg oral tablet) 1 Tablet(s) Oral Every Day bifidobacterium-lactobacillus (Nature's Bounty Probiotic) Oral Every Day cholecalciferol (Vitamin D3) 1000 Oral Every Day denosumab (Prolia 60 mg/ mL subcutaneous solution) SubCutaneous Every 6 months levothyroxine (Synthroid 75 mcg (0.075 mg) oral tablet) 1 Tablet(s) Oral Every Day metoprolol (Metoprolol Tartrate 50 mg oral tablet) 1 Tablet(s) Oral Every Day multivitamin with minerals (Celebrate Multivitamin oral capsule) 1 Capsule(s) Oral Every Day omega-3 polyunsaturated fatty acids (Fish Oil 1000 mg oral capsule) 1 Capsule(s) Oral Two Times A Day omeprazole 20 Milligram(s) Oral Every Day PRAVAstatin (pravastatin 40 mg oral tablet) Oral Every Day Take your medications faithfully. Do NOT skip medication. Do NOT stop taking medications without the direction of a physician. Carry a list of your medications with you at all times, and take this medication list with you to your first follow up visit. Report any side effects. Avoid herbal remedies unless discussed with your physician. As part of your treatment plan, your physician may have prescribed a limited course of a controlled substance. This medication may be given to help people with moderate or severe pain or for other medical conditions, but there are risks involved with treatment. Common side effects may include nausea, constipation, drowsiness, sweating, itching, dry mouth, and rash. More serious side effects may include cognitive and motor impairment, like problems with thinking, concentrating, alertness, and movement (e.g. slowed reflexes), and driving and operating heavy machinery can be dangerous. It is important for you to talk to your physician if you have these side effects or questions. These controlled substances can produce physical dependence and be habit-forming if taken for an extended period of time, which means that the body has gotten used to them and may experience withdrawal symptoms if they are abruptly stopped. Withdrawal symptoms can include runny nose, sweating, goose bumps, diarrhea, abdominal cramping, rapid heartbeat, difficulty sleeping, and nervousness. Please dispose of unused and medications per pharmacy guidance. Education Materials Vitrectomy Vitrectomy is a procedure to remove vitreous from the eye and replace it with a saltwater solution (saline). Vitreous is a sticky, gel-like substance that fills most of the inside of the eyeball. The vitreous is clear, and it needs to stay clear for you to see properly. This procedure may be done to stabilize or improve your vision. You may need this procedure if you have: ??? Cloudy vitreous. ??? Vitreous that pulls on the structures it touches and risks tearing them. ??? A severe eye injury. ??? Scar tissue on the light-sensitive layer of tissue in the back of your eye (retina). ??? Retinal bleeding. ??? A retina that is wrinkled (macular pucker) or detached. ??? An infection inside your eye. Tell a health care provider about: ??? Any allergies you have. ??? All medicines you are taking, including vitamins, herbs, eye drops, creams, and xyrb-tgf-ulouvgd medicines. ??? Any problems you or family members have had with anesthetic medicines. ??? Any blood disorders you have. ??? Any surgeries you have had, including refractive surgery such as LASIK. ??? Any medical conditions you have. ??? Whether you are or may be . What are the risks? Generally, this is a safe procedure. However, problems may occur, including: ??? Infection. ??? Bleeding. ??? Allergic reactions to medicines or dyes. ??? Damage to other structures or organs. ??? Seeing small, drifting specks in your field of vision (floaters). ??? Retinal tears or detachment. ??? Increased eye pressure. ??? Clouding of the lens in the eye (cataracts). ??? Swelling of the front layer of the eye (cornea). What happens before the procedure? You may have a physical exam. This may include an ultrasound to check the inside of your eye. ??? Follow instructions from your health care provider about eating or drinking restrictions. ??? Ask your health care provider about: ? Changing or stopping your regular medicines. This is especially important if you are taking diabetes medicines or blood thinners. ? Taking medicines such as aspirin and ibuprofen. These medicines can thin your blood. Do not take these medicines before your procedure if your health care provider instructs you not to. ??? You may be given eye drops. Use them as told by your health care provider. ??? If you have bleeding in your eye or if you are at risk for retinal detachment, you may be told to limit your activity or stay in a certain position, such as sitting up. Do this as told by your health care provider. ??? Plan to have someone take you home after the procedure. What happens during the procedure? To reduce your risk of infection: ? Your health care team will wash or sanitize their hands. ? Your skin will be washed with soap. ??? An IV tube will be inserted into one of your veins. ??? You will be given one or more of the following: ? A medicine to help you relax (sedative). ? A medicine to numb the area (local anesthetic). ? A medicine to make you fall asleep (general anesthetic). ??? Your eye will be examined through a microscope. ??? Small incisions will be made in the white part of your eye (sclera). ??? Small tools will be inserted through the incisions, and vitreous and any scar tissue will be removed. ??? Silicone oil or a bubble of air or gas may be used to reduce bleeding and hold your retina in place. The procedure may vary among health care providers and hospitals. What happens after the procedure? Your blood pressure, heart rate, breathing rate, and blood oxygen level will be monitored often until the medicines you were given have worn off. ??? You will be given eye drops. You may also be given pain medicine. ??? You may need to stay in a certain position for a period of time, instead of being able to walk around. Your health care provider may ask you to sit up or remain on your back or your stomach. ??? You may be given an eye patch or eye shield to wear. ??? Do not drive for 24 hours if you received a sedative. This information is not intended to replace advice given to you by your health care provider. Make sure you discuss any questions you have with your health care provider. Document Released: 10/18/2011 Document Revised: 07/13/2016 Document Reviewed: 10/13/2015 [employer] Interactive Patient Education ?? 2019 [employer]. General Anesthesia, Adult General anesthesia is the use of medicines to make a person go to sleep (unconscious) for a medical procedure. General anesthesia must be used for certain procedures, and is often recommended for procedures that: ??? Last a long time. ??? Require you to be still or in an unusual position. ??? Are major and can cause blood loss. The medicines used for general anesthesia are called general anesthetics. As well as making you unconscious for a certain amount of time, these medicines: ??? Prevent pain. ??? Control your blood pressure. ??? Relax your muscles. Tell a health care provider about: ??? Any allergies you have. ??? All medicines you are taking, including vitamins, herbs, eye drops, creams, and axme-gzh-hteowwg medicines. ??? Any problems you or family members have had with anesthetic medicines. ??? Types of anesthetics you have had in the past. ??? Any blood disorders you have. ??? Any surgeries you have had. ??? Any medical conditions you have. ??? Any recent upper respiratory, chest, or ear infections. ??? Any history of: ? Heart or lung conditions, such as heart failure, sleep apnea, asthma, or chronic obstructive pulmonary disease (COPD). ? service. ? Depression or anxiety. ??? Any tobacco or drug use, including marijuana or alcohol use. ??? Whether you are or may be . What are the risks? Generally, this is a safe procedure. However, problems may occur, including: ??? Allergic reaction. ??? Lung and heart problems. ??? Inhaling food or liquid from the stomach into the lungs (aspiration). ??? Nerve injury. ??? Air in the bloodstream, which can lead to stroke. ??? Extreme agitation or confusion (delirium) when you wake up from the anesthetic. ??? Waking up during your procedure and being unable to move. This is rare. These problems are more likely to develop if you are having a major surgery or if you have an advanced or serious medical condition. You can prevent some of these complications by answering all of your health care provider's questions thoroughly and by following all instructions before your procedure. General anesthesia can cause side effects, including: ??? Nausea or vomiting. ??? A sore throat from the breathing tube. ??? Hoarseness. ??? Wheezing or coughing. ??? Shaking chills. ??? Tiredness. ??? Body aches. ??? Anxiety. ??? Sleepiness or drowsiness. ??? Confusion or agitation. What happens before the procedure? Staying hydrated Follow instructions from your health care provider about hydration, which may include: ??? Up to 2 hours before the procedure ??? you may continue to drink clear liquids, such as water, clear fruit juice, black coffee, and plain tea. Eating and drinking restrictions Follow instructions from your health care provider about eating and drinking, which may include: ??? 8 hours before the procedure ??? stop eating heavy meals or foods such as meat, fried foods, or fatty foods. ??? 6 hours before the procedure ??? stop eating light meals or foods, such as toast or cereal. ??? 6 hours before the procedure ??? stop drinking milk or drinks that contain milk. ??? 2 hours before the procedure ??? stop drinking clear liquids. Medicines Ask your health care provider about: ??? Changing or stopping your regular medicines. This is especially important if you are taking diabetes medicines or blood thinners. ??? Taking medicines such as aspirin and ibuprofen. These medicines can thin your blood. Do not take these medicines unless your health care provider tells you to take them. ??? Taking sqdt-riz-ocygxfn medicines, vitamins, herbs, and supplements. Do not take these during the week before your procedure unless your health care provider approves them. General instructions ??? Starting 3???6 weeks before the procedure, do not use any products that contain nicotine or tobacco, such as cigarettes and e-cigarettes. If you need help quitting, ask your health care provider. ??? If you brush your teeth on the morning of the procedure, make sure to spit out all of the toothpaste. ??? Tell your health care provider if you become ill or develop a cold, cough, or fever. ??? If instructed by your health care provider, bring your sleep apnea device with you on the day of your surgery (if applicable). ??? Ask your health care provider if you will be going home the same day, the following day, or after a longer hospital stay. ? Plan to have someone take you home from the hospital or clinic. ? Plan to have a responsible adult care for you for at least 24 hours after you leave the hospital or clinic. This is important. What happens during the procedure? You will be given anesthetics through both of the following: ? A mask placed over your nose and mouth. ? An IV in one of your veins. ??? You may receive a medicine to help you relax (sedative). ??? After you are unconscious, a breathing tube may be inserted down your throat to help you breathe. This will be removed before you wake up. ??? An anesthesia specialist will stay with you throughout your procedure. He or she will: ? Keep you comfortable and safe by continuing to give you medicines and adjusting the amount of medicine that you get. ? Monitor your blood pressure, pulse, and oxygen levels to make sure that the anesthetics do not cause any problems. The procedure may vary among health care providers and hospitals. What happens after the procedure? Your blood pressure, temperature, heart rate, breathing rate, and blood oxygen level will be monitored until the medicines you were given have worn off. ??? You will wake up in a recovery area. You may wake up slowly. ??? If you feel anxious or agitated, you may be given medicine to help you calm down. ??? If you will be going home the same day, your health care provider may check to make sure you can walk, drink, and urinate. ??? Your health care provider will treat any pain or side effects you have before you go home. ??? Do not drive for 24 hours if you were given a sedative. Summary ??? General anesthesia is used to keep you still and prevent pain during a procedure. ??? It is important to tell your healthcare provider about your medical history and any surgeries you have had, and previous experience with anesthesia. ??? Follow your healthcare provider???s instructions about when to stop eating, drinking, or taking certain medicines before your procedure. ??? Plan to have someone take you home from the hospital or clinic. This information is not intended to replace advice given to you by your health care provider. Make sure you discuss any questions you have with your health care provider. Document Released: 05/14/2008 Document Revised: 09/21/2017 Document Reviewed: 09/21/2017 [employer]al Interactive Patient Education ?? 2019 [employer] Emergency Awareness and Preventative Care STROKE is an EMERGENCY Every Minute Counts Act FAST and Check for these signs: FACE Does the face look uneven? ARM Does one arm drift down? SPEECH Does their speech sound strange? TIME Call at any sign of stroke Stroke Risk Factors Atrial Fibrillation (irregular heartbeat) Diabetes Family history of stroke Heart Disease Heavy alcohol use High Blood Pressure High Cholesterol Physical inactivity and obesity Smoking Cigarette Smoking The facts are clear, cigarette smoking will shorten your life. Smoking can cause many illnesses along the way. As a healthcare provider, we recommend that you stop smoking. Assistance with quitting is available by contacting 3-541-JKTX-NOW. This is a free resource providing counseling, support, and referral. Or you may contact your personal physician. [employer] Suicide Prevention Lifeline: The National Suicide Prevention Lifeline is a national network of local crisis centers that provides free and confidential emotional support to people in suicidal crisis or emotional distress 24 hours a day, 7 days a week. Don't Wait! Stop a Heart Attack Before it Starts What is a heart attack? A heart attack is damage or to a part of the heart from severely decreased or lack of blood flow to the heart. Over time, arteries can become narrow from the buildup of fat and cholesterol, which is called plaque. The plaque can rupture causing a blood clot to form. When the blood clot forms, the artery can become severely narrowed or completely blocked, causing a heart attack. Heart attack is the leading cause of in the [place]. 85% of muscle damage occurs within the first 2 hours. Delay in the recognition of heart attack symptoms increases the chances of . Know the early symptoms of a heart attack: Nausea Feeling of fullness in chest Jaw Pain Pain that travels down one or both arms Fatigue/being tired Anxiety Back Pain Chest pressure, squeezing, or discomfort Shortness of breath Sweating, or a cold sweat Feeling of impending doom There are unusual signs of a heart attack, too! Women, the elderly, and diabetics may present with atypical symptoms: Fainting/dizziness Weakness Confusion Risk Factors for a Heart Attack Some heart disease risk factors, such as age and family history, cannot be changed. Others, like smoking and lack of exercise, can be changed. Smoking High Cholesterol High Blood Pressure Family History Obesity Age Gender (Males are at higher risk) Lack of Exercise Diabetes Diet Stress Excessive Alcohol Intake If you or someone you know is experiencing the signs and symptoms of a heart attack, DON???T DELAY. Call 9-1-1 immediately and seek help. If someone collapses, perform CPR! Do not attempt to drive if you are having symptoms of heart attack. Hands-Only CPR Why Hands-Only CPR? Hands-Only CPR has been shown to be as effective as conventional CPR for cardiac arrests that occur outside of a hospital. Survival depends on immediately receiving CPR from someone nearby. How do you perform Hands-Only CPR? There are two easy steps: Call 9-1-1 if you see a teen or adult collapse Push hard and fast in the center of the chest at a beat of 100 beats per minute. Save a life! 4 WAYS TO GET AHEAD OF SEPSIS SEPSIS is a MEDICAL EMERGENCY. Time matters! Infections put you and your family at risk for a life-threatening condition called sepsis. Sepsis is the body's extreme response to an infection. It is life-threatening, and without timely treatment, sepsis can rapidly lead to tissue damage, organ failure, and . Sepsis happens when an infection you already have-in your skin, lungs, urinary tract or somewhere else-triggers a chain reaction throughout your body. 1 PREVENT INFECTIONS Take good care of chronic conditions. Talk to your doctor about getting the recommended vaccines. 2 PRACTICE GOOD HYGIENE Wash your hands frequently. Keep cuts or open sores clean and covered until they are healed. 3 KNOW THE SYMPTOMS Confusion or disorientation Shortness of breath High heart rate Fever, shivering, or feeling very cold Extreme pain or discomfort Clammy or sweaty skin 4 ACT FAST Get medical care IMMEDIATELY if you suspect sepsis or if you have an infection that is not getting better or is getting worse. To learn more about sepsis and how to prevent infections, visit www.cdc.gov/sepsis. Test Results Laboratory or Other Results This Visit (last charted value for your 11/20/2018 visit) No Laboratory or Other Results This Visit Patient Name:MEDHAT ARANZAPHOENIX PACK I have received this information and was given the opportunity to ask questions. Patient/Undercover Agent Name: Patient/Undercover Agent Signature: Relationship to Patient: Clinician/Hospital Undercover Agent Signature: Date: documented in this encounter Plan of Treatment Not on file documented as of this encounter Visit Diagnoses Not on filedocumented in this encounter
--- OUTSIDE RECORDS SUMMARY | 2024-12-02 10:34 | XMS_ITS | Encounter Summary ---
Author Organization [employer] ([place], [place], [place], [place]) Address [address] [place] [address] Care Team Providers Care Humidifier Maintenance Worker Name Role Phone Unavailable Primary Care Provider Unavailabl e Encounter Details Date Type Department Care Team (Late st Contact Info) Description 11/20/2018 Transcribed Document [facility] [place] [address] [place] [address] ProviderShireen MD [address] [place] [address] Social History Tobacco Use Types Packs/Day [...] 11/20/2018 10:34 AM CDT [facility] PreOp Summary Primary Physician: HANNAH PENA MD Finalized Date/Time: 11/20/18 11:34:35 Pt. Name: ARANZA MAN/Sex: 1955 Female Med Rec #: [id number] Physician: HANNAH PENA MD Financial #: [id number] Pt. Type: O Room/Bed: Admit/Disch: 11/20/18 07:31:00 - Institution: [facility] PreOp Case Times Entry 1 In Preop 11/20/18 07:45:00 Ready for Holding n/a Room Patient Ready for 11/20/18 09:15:00 Surgery Patient Out of Preop 11/20/18 10:17:00 Patient Out of n/a Holding Room Last Modified By: ROC KENT RN 11/20/18 11:34:29 [facility] PreOp Case Times Audit 11/20/18 11:34:29 Regional Business Development Manager: ROSE Modifier: [email or web address] <+> 1 Patient Out of Preop 11/20/18 10:13:55 Regional Business Development Manager: ROSE Modifier: [email or web address] <+> 1 Patient Ready for Surgery Finalized By: ROC KENT RN Document Signatures Signed By: ROC KENT RN 11/20/18 11:34 documented in this encounter Plan of Treatment Not on file documented as of this encounter Visit Diagnoses Not on filedocumented in this encounter
--- OUTSIDE RECORDS SUMMARY | 2024-12-02 10:34 | XMS_ITS | Encounter Summary ---
Author Organization [employer] ([place], [place], [place], [place]) Address [address] [place] [address] Care Team Providers Care Motor Vehicle Assembler Name Role Phone Unavailable Primary Care Provider Unavailabl e Encounter Details Date Type Department Care Team (Late st Contact Info) Description 11/20/2018 Transcribed Document [facility] [place] Family Medicine [facility] [place] [address] ProviderShireen MD [address] [place] [address] Social History Tobacco Use Types Packs/Day Years Used Date Smoking Tobacco: Never Assessed Comments Unknown Sex and Gender Information Value Date Recorded Sex Assigned at Not on file Legal Sex Female 3:47 PM CDT Gender Identity Not on file Sexual Orientation Not on file documented as of this encounter Miscellaneous Notes * Cerner Conversion Note - Shireen ProviderMD - 11/20/2018 8:58 AM CDT Pre Procedure Adult Entered On: 11/20/2018 9:08 EDT Performed On: 11/20/2018 8:58 EDT by ANDRE ENRIQUEZ RN Height and Weight, Clinical Dosing Height Source : Stated Height Entry Format : [place] Height, Feet : 5 ft(Converted to: 152 cm, 60 Inch) Height, Inches : 7 Inch(Converted to: 0 ft 7 Inch, 17.78 cm) Clinical Height : 170.18 cm Weight Source : Standing scale Weight Entry Format : Traill Clinical Dosing Weight : 75.91 kg Weight, Pounds : 167 lb Body Surface Area (BSA) : 1.87 m2 Body Mass Index : 26.2 kg/m2 (HI) [place] Body Weight : 61 kg ANDRE ENRIQUEZ RN - 11/20/2018 8:58 EDT Health Histories Smoking Status : Former smoker, quit more than 30 days ago Smokeless Tobacco Status : Never ANDRE ENRIQUEZ RN - 11/20/2018 8:58 EDT Social History (As Of: 11/20/2018 09:08:44 EDT) Alcohol: Alcohol Use History Yes. Days/Week: 2. Total Drinks/Week: 2. (Last Updated: 11/20/2018 09:08:39 EDT by ANDRE ENRIQUEZ RN) Infectious Disease History Infectious Disease History : Chicken pox/Shingles Fever/Chills Last 48 Hours : No Travel To Regions with Travel Advisories : No Travel Outside [place] Within Last 30 Days : No Contact With Traveler to Advisory Region : No Tuberculosis Symptoms : None ANDRE ENRIQUEZ RN - 11/20/2018 8:58 EDT Anesthesia/Transfusion History Family History of Anesthesia Reaction : No prior transfusion(s) Transfusion History : Prior anesthesia without reaction Family History of Anesthesia Reaction : None ANDRE ENRIQUEZ RN - 11/20/2018 8:58 EDT Functional Assessment Living Situation : Home Patient Lives With : Spouse Current Home Treatments : None ANDRE ENRIQUEZ RN - 11/20/2018 8:58 EDT Psychosocial History Currently in Unsafe Situation : No Tried to Harm Yourself in the Past? : No Thoughts of Harming/Killing Yourself : No ANDRE ENRIQUEZ RN - 11/20/2018 8:58 EDT Advance Directive Patient has Advance Directive *Q : Yes, Advance Directive not with the patient Advance Directive Type : Living will Copy Advance Directive Verified/on Chart : No ANDRE ENRIQUEZ RN - 11/20/2018 8:58 EDT Spiritual/Cultural Needs Significant Distress/Coping/Need Support : Yes Any Spiritual/Cultural Needs or Requests : No ANDRE ENRIQUEZ RN - 11/20/2018 8:58 EDT Teaching/Learning Assessment Barriers To Learning : None evident ANDRE ENRIQUEZ RN - 11/20/2018 8:58 EDT Education Topics, Periop Preadmission Perioperative Education [place] : Verbalizes understanding IV's : Verbalizes understanding ANDRE ENRIQUEZ RN - 11/20/2018 8:58 EDT General Info Arrived From : Home Mode of Arrival on Unit : Ambulatory Patient Arrival Date/Time : 11/20/2018 7:45 EDT Legal Guardian : Spouse ANDRE ENRIQUEZ RN - 11/20/2018 9:20 EDT Want Family/Rep/Phys Notified of Admit : No Emergency Contact #1 : micaela joiner Emergency Contact #1 Phone Number : [phone] Emergency Contact #1 Relationship : Emergency Contact #2 : . Emergency Contact #2 Phone Number : . Emergency Contact #2 Relationship : . Primary Language : Romansh Communication Barrier : None ANDRE ENRIQUEZ RN - 11/20/2018 8:58 EDT Vital Measurements Temperature Source : Tympanic Temperature Mode : Fahrenheit Temperature, Fahrenheit : 97.8 Deg F Clinical Temperature, C : 36.6 Deg C Heart Rate, Apical : 54 bpm (LOW) Pulse Rhythm : Regular Respiratory Rate : 18 Breaths/Min Systolic Blood Pressure : 135 mmHg Diastolic Blood Pressure : 63 mmHg ANDRE ENRIQUEZ RN - 11/20/2018 8:58 EDT Sleep Apnea Risk Assmt Hx of Obstructive Sleep Apnea Diagnosis : No Snore Loudly : No Tired, Fatigued, or Sleepy During Day : No Observed Stopping Breathing During Sleep : No Have/Are Being Treated for Hypertension : No BMI Greater Than 35 kg/m2 : No Age over 50 Years Old : Yes Neck Circumference Greater Than 40 cm : No Gender Male : No STOP-BANG Sleep Apnea Risk Level Score : 1 ANDRE ENRIQUEZ RN - 11/20/2018 8:58 EDT Carlos Scale Carlos Sensory Perception : No impairment Carlos Moisture : Rarely moist Carlos Activity : Walks frequently Carlos Mobility : No limitation Carlos Nutrition : Excellent Carlos Friction and Shear : Potential problem Carlos Score : 22 ANDRE ENRIQUEZ RN - 11/20/2018 8:58 EDT Oxygen Therapy Oxygen Therapy Mode : Room air ANDRE ENRIQUEZ RN - 11/20/2018 8:58 EDT Pain Assessment Pain Assessment : Initial assessment Pain Scale Goal : 3 Pain Scale Used : 0-10 Scale Assume Pain Present : Yes ANDRE ENRIQUEZ RN - 11/20/2018 8:58 EDT Fall Risk Scales ABCs Fall Injury Risk Identification : None KAY Hx Falls Immediate/Within 3 Months : No Kay Secondary Diagnosis : Yes KAY Use of Ambulatory Aid : None KAY IV Therapy or IV Access : Yes Kay Gait/Transferring : Normal, bedrest, immobile Kay Mental Status : Oriented to own ability Kay Fall Risk Score : 35 KAY Fall Scale Risk Level : 25-45 Medium Risk [place] Fall Interventions : Adequate lighting, Bed in low position, Call device within reach, Personal items within reach, Upper side-rails up ANDRE ENRIQUEZ RN - 11/20/2018 8:58 EDT Education Topics, Day of Surgery DayofSurgery Education Grid Infection Risks : Verbalizes understanding Medication Instructions : Verbalizes understanding ANDRE ENRIQUEZ RN - 11/20/2018 8:58 EDT Valuables and Belongings Valuables and Belongings : Clothing Clothing : Common streetwear Clothing Disposition : Bedside ANDRE ENRIQUEZ RN - 11/20/2018 8:58 EDT Pain Scale Intensity : 0 ANDRE ENRIQUEZ RN - 11/20/2018 8:58 EDT Image 4 - Images currently included in the form version of this document have not been included in the text rendition version of the form. Romney Coma Romney Best Motor Response : Obey commands Delroy Best Verbal Response : Oriented Romney Eye Opening Response : Spontaneous Romney Coma Score : 15 ANDRE ENRIQUEZ RN - 11/20/2018 8:58 EDT Electronically signed by Sandip Dunn Conversion Employee Wellness/Fitness Coordinator Cerner at 06/04/2022 10:26 PM CDT documented in this encounter Plan of Treatment Not on file documented as of this encounter Visit Diagnoses Not on filedocumented in this encounter
--- OUTSIDE RECORDS SUMMARY | 2024-12-02 10:35 | XMS_ITS | Referral Summary ---
Author Organization [employer] ([place], [place], [place], [place]) Address [address] [place] [address] Care Team Providers Care Tire Retreader Name Role Phone Unavailable Primary Care Provider Unavailabl e Social History Tobacco Use Types Packs/Day Years Used Date Smoking Tobacco: Never Assessed Comments Unknown Sex and Gender Information Value Date Recorded Sex Assigned at Not on file Legal Sex Female 3:47 PM CDT Gender Identity Not on file Sexual Orientation Not on file Plan of Treatment Not on file
--- OUTSIDE RECORDS SUMMARY | 2024-12-02 10:35 | XMS_ITS | Encounter Summary ---
Author Organization [email or web address] ([place], [place], [place], [place]) Address [address] [place] [address] Care Team Providers Care Building Superintendent Name Role Phone Unavailable Primary Care Provider Unavailabl e Encounter Details Date Type Department Care Team (Late st Contact Info) Description 11/20/2018 Transcribed Document [facility] [place] Family Medicine [address] [place] [address] ProviderShireen MD [address] [place] [address] Social History Tobacco Use Types Packs/Day Years Used Date Smoking Tobacco: Never Assessed Comments Unknown Sex and Gender Information Value Date Recorded Sex Assigned at Not on file Legal Sex Female 3:47 PM CDT Gender Identity Not on file Sexual Orientation Not on file documented as of this encounter Miscellaneous Notes * Cerner Conversion Note - Shireen White MD - 11/20/2018 11:11 AM CDT Patient Education Materials Follows: Vitrectomy Vitrectomy is a procedure to remove [...] including vitamins, herbs, eye drops, creams, and dbjq-cjg-lemjprm medicines. ??? Any problems you or family [...] 10/18/2011 Document Revised: 07/13/2016 Document Reviewed: 10/13/2015 [employer] Interactive Patient Education ? 2019 [employer] General Anesthesia, Adult General anesthesia is the [...] including vitamins, herbs, eye drops, creams, and jkvo-kar-trgntdw medicines. ??? Any problems you or family [...] Up to 2 hours before the procedure ? you may continue to drink clear liquids, such as water, clear fruit juice, black coffee, and plain tea. Eating and drinking restrictions Follow instructions from your health care provider about eating and drinking, which may include: ??? 8 hours before the procedure ? stop eating heavy meals or foods such as meat, fried foods, or fatty foods. ??? 6 hours before the procedure ? stop eating light meals or foods, such as toast or cereal. ??? 6 hours before the procedure ? stop drinking milk or drinks that contain milk. ??? 2 hours before the procedure ? stop drinking clear liquids. Medicines Ask your health care provider about: ??? Changing or stopping your regular medicines. This is especially important if you are taking diabetes medicines or blood thinners. ??? Taking medicines such as aspirin and ibuprofen. These medicines can thin your blood. Do not take these medicines unless your health care provider tells you to take them. ??? Taking vsls-wzt-ummarya medicines, vitamins, herbs, and supplements. Do not take these during the week before your procedure unless your health care provider approves them. General instructions ??? Starting 3?6 weeks before the procedure, do not use [...] experience with anesthesia. ??? Follow your healthcare provider?s instructions about when to stop eating, drinking, [...] 05/14/2008 Document Revised: 09/21/2017 Document Reviewed: 09/21/2017 [employer] Interactive Patient Education ? 2019 [employer] documented in this encounter Plan of Treatment Not on file documented as of this encounter Visit Diagnoses Not on filedocumented in this encounter
--- OUTSIDE RECORDS SUMMARY | 2024-12-02 10:35 | XMS_ITS | Encounter Summary ---
Author Organization [employer] ([place], [place], [place], [place]) Address [address] [place] [address] Care Team Providers Care Color Developer Name Role Phone Unavailable Primary Care Provider Unavailabl e Encounter Details Date Type Department Care Team (Late st Contact Info) Description 11/20/2018 Transcribed Document [facility] [place] [facility] [place] [address] ProviderShireen MD [address] [place] [address] Social History Tobacco Use Types Packs/Day Years Used Date Smoking Tobacco: Never Assessed Comments Unknown Sex and Gender Information Value Date Recorded Sex Assigned at Not on file Legal Sex Female 3:47 PM CDT Gender Identity Not on file Sexual Orientation Not on file documented as of this encounter Miscellaneous Notes * Cerner Conversion Note - Shireen White MD - 11/20/2018 10:52 AM CDT DATE OF PROCEDURE: NOTE: This is Dr. Roosevelt Prajapati dictating an operating report on behalf of Dr. Garth Alvarenga PREOPERATIVE DIAGNOSIS(ES): Vitreous opacity in the right eye. POSTOPERATIVE DIAGNOSIS(ES): Vitreous opacity in the right eye. PROCEDURE: 1. A 25-gauge pars plana vitrectomy of the right eye. 2. Air-fluid exchange of the right eye. SURGEON: Garth Alvarenga MD DRY CELL ASSEMBLY SUPERVISOR: Roosevelt Prajapati MD ANESTHESIA: MAC with retrobulbar block. COMPLICATIONS: None. BLOOD LOSS: Minimal. INDICATION FOR PROCEDURE: Patient is a pleasant female who is [facility]. Patient notes having visually significant floaters in the right eye. Patient states that these floaters have been there for a long time and affecting her day to day activities. Patient is so bothered that she was interested in having surgery done. Risks, benefits, and alternatives of 25-gauge pars plana vitrectomy were discussed with patient including 1 in 1000 risk of anesthesia, 1 in 1000 risk of infection, risk of retinal tears and retinal detachments. We also discussed with her the likely progression of her cataract. Patient was interested in having the surgery done. Written consent was obtained. DESCRIPTION OF THE PROCEDURE: Patient was met in the preoperative holding area where the correct eye which was the right eye was marked. Written consent was obtained. Patient was brought into operating room where a time-out was performed. MAC anesthesia was initiated by the Anesthesia team. Retrobulbar block was given. The eye was prepped and draped in the sterile ophthalmologic fashion. A 25-gauge pars plana vitrectomy system was initiated in a phakic manner 4 mm posterior to the limbus. The infusion cannula was noted to be in the vitreous cavity before being turned on. The light pipe and the cutter were used on the superior two ports. A core vitrectomy was performed. The posterior hyaloid was checked and was noted to already be elevated. Mild peripheral shaving was performed. A 360 degrees of scleral depression exam was performed and no retinal tears or detachments or holes were noted. The 40% injection of air using air fluid exchange was performed. The cannulas were removed and the sclerotomies were noted to be water and airtight. Subconjunctival injection of steroid and antibiotic was given. The eyelid speculum was removed. Antibiotic ointment was applied. The eye was patched and shielded. Patient was taken to the PACU in a stable fashion having tolerated the procedure well. A trained technology assistant was present for duration of the case to assist with complex steps including lens manipulation and scleral depression. Roosevelt Prajapati M.D. Dict: 11/20/2018 10:52:53 Trans: 11/20/2018 12:35:54 CC1: Roosevelt Prajapati M.D. documented in this encounter Plan of Treatment Not on file documented as of this encounter Visit Diagnoses Not on filedocumented in this encounter
--- OUTSIDE RECORDS SUMMARY | 2024-12-02 10:35 | XMS_ITS | Clinical Summary ---
Author Organization [facility] Address [address] [place] [address] Care Team Providers Care Statue Carver Name Role Phone None, Physician Primary Care Provider Unavailabl e Allergies No known active allergies Medications raloxifene (EVISTA) 60 MG tablet Take 60 mg by mouth daily Active levothyroxine (SYNTHROID) 75 MCG tablet Take 75 mcg by mouth daily Active metoprolol, TOPROL-XL, 25 MG 24 hr tablet Take 25 mg by mouth daily Active omeprazole (PRILOSEC) 20 MG capsule Take 20 mg by mouth daily Active pravastatin (PRAVACHOL) 40 MG tablet Take 40 mg by mouth daily Active Multiple Vitamins-Minera ls (MULTIVITAMIN & MINERAL PO) Take by mouth Active Calcium Citrate-Vitamin D (CITRACAL D) 315-250 MG-UNIT TABS Take by mouth Active Meridian-3 Fatty Acids (FISH OIL) 1000 MG capsule Take 1,000 mg by mouth 2 (two) times daily Active FIBER PO Take by mouth Active ALPRAZolam (XANAX) 0.5 MG tablet Take 0.5 mg by mouth nightly as needed for Sleep Active aspirin 81 MG tablet Take 81 mg by mouth daily Active HYDROcodone-juan taminophen (NORCO) 5-325 MG per tablet Take 1-2 tablets by mouth every 4 (four) hours as needed for Pain 25 tablet 10/15/2015 Active Social History Tobacco Use Types Packs/Day Years Used Date Smoking Tobacco: Former Alcohol Use Standard Drinks/Week Comments Yes 3 (1 standard drink = 0.6 oz pur e alcohol) per week Comments No Sex and Gender Information Value Date Recorded Sex Assigned at Not on file Legal Sex Female 7:54 AM EDT Gender Identity Not on file Sexual Orientation Not on file Last Filed Vital Signs Vital Sign Reading Time Taken Comments Blood Pressure 149/64 10/15/2015 10:58 AM EDT Pulse 71 10/15/2015 10:58 AM EDT Temperature 36.4 C (97.6 F) 10/15/2015 8:01 AM EDT Respiratory Rate 18 10/15/2015 10:58 AM EDT Oxygen Saturation 100% 10/15/2015 8:01 AM EDT Inhaled Oxygen Concentration - - Weight 73.9 kg (163 lb) 10/15/2015 8:01 AM EDT Height 170.2 cm (5' 7 ) 10/15/2015 8:01 AM EDT Body Mass Index 25.53 10/15/2015 8:01 AM EDT Plan of Treatment Health Maintenance Due Date Last Done Comments Breast Cancer Screening 1955 CT Colonography 1955 Colonoscopy 1955 Colorectal Cancer Screening 1955 FIT-DNA 1955 FIT 1955 FOBT 1955 Hepatitis C Screening 1955 Sigmoidoscopy 1955 Tdap/Td Vaccine >11 yo (1 - Tdap) 1974 Pneumococcal Vaccines >50 yo (1 of 1 - PCV) 2005 Shingles (Shingrix) (1 of 2) 2005 Osteoporosis Screening 2020 Annual SDOH Screening 02/20/2024 Influenza Vaccine (#1) 2024 RSV 50+ and (1 - 1 -dose 75+ series) 2030 Haemophilus Influenzae Type B (Hib) Vaccine Aged Out No longer eligible b ased on patient's age to complete this topic Hepatitis A (HepA) Vaccine Aged Out N o longer eligible based on patient's age to complete this topic Hepatitis B (HepB) Vaccine Aged Out N o longer eligible based on patient's age to complete this topic Meningococcal ACWY Aged Out No longer eligible based on patient's age to complete this topic Polio (IPV) Aged Out No longer eligi ble based on patient's age to complete this topic Rotavirus (RV) Vaccine Aged Out No lo nger eligible based on patient's age to complete this topic Insurance MISCELLANEOUS Care Teams Statue Carver Relationship Specialty Start Date End Date None, Physician PCP - General 10/15/15
--- OUTSIDE RECORDS SUMMARY | 2024-12-02 10:35 | XMS_ITS | Encounter Summary ---
Author Organization [facility] Address [address] [place] [id number] Care Team Providers Care Jet Man Name Role Phone Shantanu Shin MD Primary Care Provider [phone] Encounter Details Date Type Department Care Team (Latest Contact Info) Description 11/10/2024 Travel Social History Tobacco Use Types Packs/Day Years Used Date Smoking Tobacco: Former Passive Smoke Exposure: Past Smokeless Tobacco: Never Comments:QUIT MORE THAN 20 Y EARS AGO Alcohol Use Standard Drinks/Week Comments Yes [...] PM EDT documented as of this encounter Plan of Treatment Upcoming Encounters Date Type Department Care Team (Late st Contact Info) Description 05/18/2025 10:45 AM EDT Office Visit [facility] [address] [id number] Tammy Avlia MD [address] [address] documented as of this encounter Visit Diagnoses Not on filedocumented in this encounter Care Teams Jet Man Relationship Specialty Start Date End Date Shantanu Shin MD [address] [facility] [address] [facility] [place] [address] PCP - General Adolescent Medicine 07/05/22 documented as of this encounter
--- OUTSIDE RECORDS SUMMARY | 2024-12-02 10:35 | XMS_ITS | Clinical Summary ---
Author Organization [employer] ([place], [place], [place], [place]) Address [address] [place] [address] Care Team Providers Care Pump Service Supervisor Name Role Phone Unavailable Primary Care Provider [...]
--- OUTSIDE RECORDS SUMMARY | 2024-12-02 10:35 | XMS_ITS | Encounter Summary ---
Author Organization [employer] ([place], [place], [place], [place]) Address [address] [place] [address] Care Team Providers Care Insurance Inspector Name Role Phone Unavailable Primary Care Provider Unavailabl e Encounter Details Date Type Department Care Team (Late st Contact Info) Description 11/20/[address] [facility] [place] Family Medicine [facility] [place] [address] ProviderShireen MD [address] [place] [address] Social History Tobacco Use Types Packs/Day [...] 11/20/2018 10:34 AM CDT [facility] PostOp Summary Primary Physician: HANNAH PENA MD Finalized Date/Time: 11/20/18 11:29:48 Pt. Name: ARANZA MAN/Sex: 1955 Female Med Rec #: [id number] Physician: HANNAH PENA MD Financial #: [id number] Pt. Type: O Room/Bed: Admit/Disch: 11/20/18 07:31:00 - Institution: [facility] PostOp Case Times Entry 1 In PACU II 11/20/18 10:59:00 Ready for PACU II 11/20/18 11:30:00 Discharge Discharge from PACU 11/20/18 11:30:00 II Last Modified By: Reyna Fritz Rn 11/20/18 11:29:45 Finalized By: Reyna Fritz Rn Document Signatures Signed By: Reyna Fritz Rn 11/20/18 11:29 documented in this encounter Plan of Treatment Not on file documented as of this encounter Visit Diagnoses Not on filedocumented in this encounter
[2024-12-02 10:47] VITALS: BP 120/57; PULSE 54; RESP 14; TEMP 36.5; O2SAT 98
[2024-12-02] MEDS: DENOSUMAB 60 MG/ML SYRINGE SUBCUT (10:47)
== END 2024-12-02 23:59 | disposition home or self-care (01) ==
LOC: INF 10:31
PROVIDERS: PCP Internal Medicine Adolescent Medicine; Visit Provider Internal Medicine Adolescent Medicine
DX: M81.0 Age-related osteoporosis without current pathological fracture (principal)
CPT/HCPCS: 96372; J0897